=== PATIENT | female | born 1950 | race Caucasian/White ===

== ENCOUNTER 2018-10-29 15:40 | Outpatient (CLI) | payer MEDICARE ==
--- NOTE | 2018-10-29 17:42 | MRI ---
MRI LEFT FOOT WITHOUT IV CONTRAST: HISTORY: A 68-year-old female with a history of edema, R60.0. Pain and swelling over the dorsal aspect of the left foot, around the third toe. TECHNIQUE: Multiplanar, multisequence MRI examination of the left foot is performed. FINDINGS: There is some minimal soft tissue swelling around the distal second toe, with some minimal fluid with in the adjacent anterior metatarsal bursa. There is abnormal edema signal within the distal second m etatarsal, including the metatarsal head, with evidence for an insufficiency type subchondral fractur e of the metatarsal head, distally. There is minimal overlying subcutaneous soft tissue swelling. T here is some abnormal T2 hyperintensity and T1 hypointensity involving the medial sesamoid, at the fi rst metatarsophalangeal joint, with some associated arthrosis and degenerative changes. This abnorma l signal is nonspecific, but certainly can be seen in cases of insufficiency fracture, arthrosis, and sesamoiditis. The remainder of the foot appears unremarkable. IMPRESSION: 1. Evidence for a stress fracture involving the distal second metatarsal head, with some adjacent ed nessa and some minimal surrounding soft tissue swelling. 2. Abnormal signal involving the medial sesamoid, at the first metatarsophalangeal joint, with some associated arthrosis changes, a nonspecific finding, as above. 3. Minimal dorsal subcutaneous edema and fat stranding. 4. Generalized arthrosis and degenerative change. POS: MAREN
== END 2018-10-29 15:41 | disposition home or self-care (01) ==
LOC: MRI 15:40
PROVIDERS: ATTEND Podiatrist Foot & Ankle Surgery
DX: M77.42 Metatarsalgia, left foot (principal); G89.29 Other chronic pain; R60.0 Localized edema; M84.478A Pathological fracture, left toe(s), initial encounter for fracture; M79.89 Other specified soft tissue disorders; R93.7 Abnormal findings on diagnostic imaging of other parts of musculoskeletal system; M19.072 Primary osteoarthritis, left ankle and foot

== ENCOUNTER 2019-01-20 09:01 | Day surgery (SDC) | payer MEDICARE ==
[2019-01-19 13:01] VITALS: BMI 28.3
[2019-01-20] MEDS ORDERED: ceFAZolin Sodium 2 GM/100 ML BAG ONE (09:49)
[2019-01-20] MEDS ORDERED: Fentanyl 100 MCG/2 ML VIAL ONE ×4 (09:49→10:28)
[2019-01-20] MEDS ORDERED: Ropivacaine 0.2% HCl/PF 0 ML ONE (10:16)
[2019-01-20] MEDS ORDERED: Midazolam HCl 2 mg/2 ml Vial ONE ×2 (10:16→10:25)
[2019-01-20] MEDS ORDERED: Bupivacaine 0.25% HCL 30 ML VIAL ONE (10:21)
[2019-01-20] MEDS ORDERED: Lidocaine 2% Jelly 5 ML TUBE ONE (10:28)
[2019-01-20] MEDS ORDERED: Bupivacaine HCl 0.5%/Epinephrine 1:200,000/PF 30 ml Vial ONE (11:50)
--- NOTE | 2019-01-20 13:27 | OP ---
DATE OF PROCEDURE: 01/20/2019 PREOPERATIVE DIAGNOSIS: Right trimalleolar ankle fracture. POSTOPERATIVE DIAGNOSIS: Right trimalleolar ankle fracture. PROCEDURE PERFORMED: Open reduction and internal fixation of right ankle (medial and lateral malleoli). ANESTHESIA: General. TOURNIQUET TIME: 36 minutes at 250 mmHg. GIS PROFESSOR: Jose Gann PA-C. IMPLANT: Synthes nonlocking small fragment, 7 hole, 1/3 tubular plate with combination of cancellous and cortical screws as well as two partially-threaded cancellous screws for the medial malleolus. COMPLICATIONS: None. DRAINS: None. SPECIMEN: None. OUTCOME: Near-anatomic alignment with severe osteopenic bone. INDICATIONS: The patient is a 68-year-old lady status post trip on stairs, sustaining twisting injury to right ankle. X-rays obtained at the [facility] demonstrated a trimalleolar ankle fracture with displacement and lateral shift of the talus. After discussion with the patient including risks and benefits, we decided to proceed with open reduction and internal fixation. Informed consent has been obtained. I believe all questions answered. DESCRIPTION OF PROCEDURE: The patient was brought to the operating room and a time-out performed followed by induction of general anesthesia. Next, a sterile prep and drape were performed of the right lower extremity. The limb was then exsanguinated with Esmarch bandage, tourniquet inflated to 250 mmHg. Next, a lateral incision was made following the distal fibula. After skin was sharply incised, dissection was carried down bluntly exposing the lateral cortex of the distal fibula using minimal subperiosteal dissection. The fracture edges were clearly visualized and free of soft tissue and the fracture hematoma was lavaged from the wound. Next, the fracture was reduced and held in place with a bone tenaculum. This was followed by contouring of a 7 hole 1/3 tubular plate to fit the lateral cortex of the distal fibula. Once appropriately contoured, it was held in place with a total of three cancellous screws distally and three cortical screws proximally. Provisional C-arm images were then obtained that showed anatomic alignment of the lateral malleolus. Next, a 2-inch incision was made vertically centered over the medial malleolus after skin was sharply incised. Dissection was carried down bluntly, taking care to spare the saphenous vein. The fracture edges were again freed of soft tissue using a periosteal elevator and the fracture was reduced and held in place with a bone tenaculum. This was then followed by insertion of 245 mm long partially threaded cancellous screws from the tip of the medial malleolus obliquely across the fracture in the distal tibial metaphysis. Final AP and lateral C-arm image was then obtained that showed anatomic alignment of the fracture in acceptable position of hardware. The two wounds were then irrigated with bulb syringe and closed in layers with 0 Vicryl deep, followed by 2-0 Vicryl, and then gómez on both medial and lateral skin. Xeroform gauze, Webril, and fiberglass splint were then applied to the ankle. Tourniquet was let down. The patient was transferred to recovery room in stable condition. There were no complications. She tolerated the procedure well. Job ID: [id number]
[2019-01-20] MEDS ORDERED: Glycopyrrolate 0.2 MG/ML 5 ML SYRINGE ONE (13:33)
[2019-01-20] MEDS ORDERED: Lidocaine 1% PF 5 ML VIAL ONE (13:33)
[2019-01-20] MEDS ORDERED: Ondansetron PF 4 MG/2 ML Vial ONE (13:33)
[2019-01-20] MEDS ORDERED: PROPOFOL 200 MG/20 ML VIAL ONE (13:33)
--- NOTE | 2019-01-20 14:02 | RAD ---
RIGHT ANKLE 3 VIEWS: Date: 01/20/19 HISTORY: Status post open reduction and internal fixation right ankle. COMPARISON: 01/18/19. FINDINGS: Metal plate and screws stabilize the distal fibula and internal fixation screws stabilize the medial malleolus with improvement in the position of the bimalleolar fracture when compared to the prereduct ion study. There is a suggestion of some abnormal widening of the distal tibiofibular space. IMPRESSION: Medial and lateral malleolar internal fixation changes. Suggestion of some widening of the distal tib iofibular space. POS: [id number]
== END 2019-01-20 15:00 | disposition home or self-care (01) ==
LOC: SDC 09:01
PROVIDERS: ATTEND Orthopaedic Surgery
PROC: 0QSJ04Z Reposition Right Fibula with Internal Fixation Device, Open Approach (ICD-10-PCS; principal; 2019-01-20)
PROC: 0QSG04Z Reposition Right Tibia with Internal Fixation Device, Open Approach (ICD-10-PCS; 2019-01-20)
DX: S82.851A Displaced trimalleolar fracture of right lower leg, initial encounter for closed fracture (principal); M50.30 Other cervical disc degeneration, unspecified cervical region; Z86.010 Personal history of colon polyps; Z87.891 Personal history of nicotine dependence; Z90.89 Acquired absence of other organs; Z90.711 Acquired absence of uterus with remaining cervical stump; Z91.09 Other allergy status, other than to drugs and biological substances; Z98.890 Other specified postprocedural states; W01.0XXA Fall on same level from slipping, tripping and stumbling without subsequent striking against object, initial encounter
CPT/HCPCS: 76000; C1713; J0670; J0690; J2001; J2250; J2405; J2704; J2795; J3010; S0020

== ENCOUNTER 2021-12-26 15:50 | Outpatient (CLI) | payer MEDICARE ==
[2021-12-27 17:56] LABS: SARS-CoV-2 PCR by NAA Not Detected (NotDetected)
== END 2021-12-26 15:51 | disposition home or self-care (01) ==
LOC: LABBT 15:50
PROVIDERS: ATTEND Neurological Surgery
DX: Z01.812 Encounter for preprocedural laboratory examination (principal); M48.061 Spinal stenosis, lumbar region without neurogenic claudication; Z20.822 Contact with and (suspected) exposure to COVID-19
CPT/HCPCS: U0003; U0005

== ENCOUNTER 2021-12-29 05:33 | Inpatient (IN) | payer MEDICARE ==
[2021-12-29] MEDS ORDERED: Neomycin-Polymyxin 1 ML AMP ONE (06:12)
[2021-12-29] MEDS ORDERED: EPINEPHrine 1 MG/ML AMP ONE (06:12)
[2021-12-29] MEDS ORDERED: Bupivacaine PF 0.5% 30 ML VIAL ONE (06:12)
[2021-12-29] MEDS ORDERED: Thrombin 5000 UNITS/5 ML VIAL ONE (06:12)
[2021-12-29] MEDS ORDERED: Fentanyl 250 MCG/5 ML VIAL ONE ×2 (06:35→12:19)
[2021-12-29] MEDS ORDERED: Albumin 5% 500 ML ONE (06:35)
[2021-12-29] MEDS ORDERED: Dexmedetomidine 200 MCG/2 ML VIAL ONE (06:35)
[2021-12-29] MEDS ORDERED: Midazolam HCl 2 mg/2 ml Vial ONE (06:36)
[2021-12-29] MEDS ORDERED: ceFAZolin 2 GM/DEX 5% 100 ML BAG ONE (06:46)
[2021-12-29] MEDS ORDERED: Acetaminophen 325 MG TAB PO PRN (07:00)
[2021-12-29] MEDS ORDERED: diphenhydrAMINE 50 MG/ML VIAL IVP PRN (07:00)
[2021-12-29] MEDS ORDERED: Promethazine HCl 25 MG/ML VIAL IM PRN ×2 (07:00→12:17)
[2021-12-29] MEDS ORDERED: Mag-Al 1200 mg/1200 mg/30 ML UDCUP PO PRN (07:00)
[2021-12-29] MEDS ORDERED: Bisacodyl 10 MG SUPP PR PRN (07:00)
[2021-12-29] MEDS ORDERED: Milk Of Magnesia 30 ML UDCUP PO PRN (07:00)
[2021-12-29] MEDS ORDERED: Acetaminophen/Codeine 30-300mg Tablet PO PRN (07:00)
[2021-12-29] MEDS ORDERED: Ondansetron PF 4 MG/2 ML Vial IVP PRN (07:00)
[2021-12-29] MEDS ORDERED: Rocuronium Bromide 10 MG/ML (10ML VIAL) ONE (07:05)
[2021-12-29] MEDS ORDERED: PROPOFOL 200 MG/20 ML VIAL ONE (07:05)
[2021-12-29] MEDS ORDERED: ePHEDrine 50 MG/ML VIAL ONE (07:05)
[2021-12-29] MEDS ORDERED: Ondansetron PF 4 MG/2 ML Vial ONE (07:05)
[2021-12-29] MEDS ORDERED: Calcium Chloride 1 GM/10 ML Abboject SYRINGE ONE (07:05)
[2021-12-29] MEDS ORDERED: Vecuronium 10 MG VIAL ONE (07:05)
[2021-12-29] MEDS ORDERED: Lidocaine 1% PF 5 ML VIAL ONE (07:05)
[2021-12-29] MEDS ORDERED: Dexamethasone 20 MG/5 ML VIAL ONE (07:05)
[2021-12-29] MEDS ORDERED: PHENYLEPHRINE-NS 100 MCG/ML 10 ML SYRINGE ONE (07:05)
[2021-12-29] MEDS ORDERED: Morphine 4 MG/ML VIAL SLOW IVP PRN (07:15)
[2021-12-29] MEDS: Calcium Carbonate 600 MG TAB PO SCH (09:00)
[2021-12-29] MEDS: Gabapentin 300 MG CAP PO SCH ×2 (09:00→20:19)
[2021-12-29] MEDS: Amlodipine 10 MG TAB PO SCH (09:00)
[2021-12-29] MEDS ORDERED: Phenylephrine 10 MG/ML VIAL ONE (09:04)
[2021-12-29] MEDS ORDERED: SUGAMMADEX SODIUM 200 MG/2 ML VIAL ONE (11:52)
[2021-12-29] MEDS ORDERED: Ondansetron HCl/PF 4 MG/2 ML Vial IVP PRN (12:17)
[2021-12-29] MEDS ORDERED: HYDROmorphone 2 MG/ML VIAL SLOW IVP PRN (12:17)
[2021-12-29] MEDS ORDERED: Promethazine HCl 25 MG/ML VIAL IVPB PRN (12:17)
[2021-12-29] MEDS ORDERED: PACU-Morphine 4MG/ML VIAL SLOW IVP PRN ×2 (12:17→12:23)
[2021-12-29] MEDS ORDERED: Morphine 4 MG/ML VIAL ONE (13:46)
[2021-12-29] MEDS ORDERED: CEFAZOLIN 2 GM, Admixture Fee 1 EACH in Sodium Chloride 0.9% 100 ML IVPB SCH (15:00)
[2021-12-29] MEDS: Sodium Chloride 0.9% 1,000 ML IV SCH ×2 (17:11→23:09)
[2021-12-29] MEDS: HYDROcodone/Acetaminophen 10/325 mg Tablet PO PRN ×2 (18:19→23:31)
[2021-12-29 18:25] VITALS: BMI 27.0
[2021-12-29] MEDS: Rosuvastatin 5 MG TAB PO SCH (20:19)
[2021-12-29] MEDS: CEFAZOLIN 2 GM, Admixture Fee 1 EACH in Sodium Chloride 0.9% 100 ML IVPB SCH (20:19)
[2021-12-30] MEDS ORDERED: ceFAZolin Sodium/D5W 2 GM in Premix Bag 1 BAG IVPB SCH (04:00)
[2021-12-30] MEDS ORDERED: CEFAZOLIN 2 GM, Admixture Fee 1 EACH in Sodium Chloride 0.9% 100 ML IVPB SCH (04:00)
[2021-12-30 05:16] LABS: #Basophils 0.1 thou/uL (0.0-0.2); #Lymphocytes 1.1 thou/uL (1.20-3.40); #Monocytes 1.2 thou/uL (0.11-0.59); #Neutrophils 8.5 thou/uL (1.40-6.50); %Eosinophils 0.1 % (0.0-10.0); %Lymphocytes 10.2 % (21.0-51.0); %Monocytes 10.7 % (0.0-10.0); %Neutrophils 78.1 % (42.0-75.0); Hemoglobin 8.8 g/dL (12.0-16.0); Mean Corpuscular HGB CONC 33.6 g/dL (32.0-36.0); Mean Corpuscular Hemoglobin 34.2 pg (27.0-31.0); Mean Platelet Volume 7.3 fL (7.4-10.4); Platelet Count 306 thou/uL (130-400); RBC Distribution Width 11.4 % (11.5-14.5); Red Blood Cell (RBC) Count 2.58 mill/uL (4.20-5.40); White Blood Cell (WBC) Count 10.9 thou/uL (4.8-10.8)
[2021-12-30 05:23] LABS: Anion Gap 11 mmol/L (10-20); BUN (Urea Nitrogen) 10 mg/dL (9.8-20.1); Calc. Creatinine Clearance 86 mL/min (70-130); Calcium 8.6 mg/dL (7.8-10.44); Carbon Dioxide 24 mmol/L (23-31); Chloride 108 mmol/L (98-107); Glucose 133 mg/dL (83-110); Potassium 4.5 mmol/L (3.5-5.1); Sodium 138 mmol/L (136-145)
[2021-12-30] MEDS: CEFAZOLIN 2 GM, Admixture Fee 1 EACH in Sodium Chloride 0.9% 100 ML IVPB SCH (05:58)
[2021-12-30] MEDS: HYDROcodone/Acetaminophen 10/325 mg Tablet PO PRN ×3 (06:07→18:55)
[2021-12-30] MEDS: Calcium Carbonate 600 MG TAB PO SCH (09:27)
[2021-12-30] MEDS: Amlodipine 10 MG TAB PO SCH (09:29)
[2021-12-30] MEDS: Gabapentin 300 MG CAP PO SCH ×2 (09:29→20:24)
[2021-12-30] MEDS: Cyclobenzaprine 10 MG TAB PO PRN (12:45)
[2021-12-30] MEDS: Sodium Chloride 0.9% 1,000 ML IV SCH ×2 (18:05→21:38)
[2021-12-30] MEDS: Rosuvastatin 5 MG TAB PO SCH (20:24)
[2021-12-31] MEDS: HYDROcodone/Acetaminophen 10/325 mg Tablet PO PRN ×3 (06:57→18:50)
[2021-12-31] MEDS: Calcium Carbonate 600 MG TAB PO SCH (09:39)
[2021-12-31] MEDS: Amlodipine 10 MG TAB PO SCH (09:39)
[2021-12-31] MEDS: Gabapentin 300 MG CAP PO SCH ×2 (09:41→20:38)
[2021-12-31] MEDS: Cyclobenzaprine 10 MG TAB PO PRN (12:20)
[2021-12-31] MEDS: Sodium Chloride 0.9% 1,000 ML IV SCH ×2 (17:20→20:54)
[2021-12-31] MEDS ORDERED: Lorazepam 2 MG/ML VIAL IM PRN (19:37)
[2021-12-31] MEDS ORDERED: Ondansetron ODT 4 MG TAB PO PRN (19:37)
[2021-12-31] MEDS ORDERED: Lorazepam 1 MG TAB PO PRN (19:37)
[2021-12-31] MEDS ORDERED: Electrolyte Replacement Protocol 1 EACH FS SCH (19:45)
[2021-12-31] MEDS ORDERED: Folic Acid 1 MG TAB PO SCH (20:00)
[2021-12-31] MEDS: HYDROcodone/Acetaminophen 7.5/325 mg Tablet PO PRN (20:38)
[2021-12-31] MEDS: Rosuvastatin 5 MG TAB PO SCH (20:38)
[2021-12-31] MEDS: Lorazepam 1 MG TAB PO SCH (20:42)
[2021-12-31] MEDS: Thiamine HCl 200 MG/2 ML VIAL SLOW IVP SCH (20:55)
[2021-12-31 21:21] LABS: #Eosinphils 0.1 thou/uL (0.0-0.7); #Lymphocytes 1.6 thou/uL (1.20-3.40); #Monocytes 1.2 thou/uL (0.11-0.59); #Neutrophils 8.5 thou/uL (1.40-6.50); %Basophils 0.3 % (0.0-1.0); %Eosinophils 0.5 % (0.0-10.0); %Lymphocytes 14.2 % (21.0-51.0); %Monocytes 10.2 % (0.0-10.0); %Neutrophils 74.9 % (42.0-75.0); Hemoglobin 8.3 g/dL (12.0-16.0); Mean Corpuscular HGB CONC 33.2 g/dL (32.0-36.0); Mean Corpuscular Hemoglobin 34.2 pg (27.0-31.0); Mean Platelet Volume 7.2 fL (7.4-10.4); Platelet Count 254 thou/uL (130-400); RBC Distribution Width 11.3 % (11.5-14.5); Red Blood Cell (RBC) Count 2.41 mill/uL (4.20-5.40); White Blood Cell (WBC) Count 11.3 thou/uL (4.8-10.8)
[2021-12-31 21:36] LABS: Lactic Acid 0.7 mmol/L (0.5-2.2)
[2021-12-31] MEDS ORDERED: Pantoprazole 40 MG GRANULES PACKET PO SCH (21:37)
[2021-12-31 21:40] LABS: Phosphorus 2.1 mg/dL (2.3-4.7)
[2021-12-31 21:41] LABS: ALT (SGPT) 34 U/L (8-55); AST (SGOT) 42 U/L (5-34); Albumin 3.4 g/dL (3.4-4.8); Alkaline Phosphatase 61 U/L (40-110); Anion Gap 9 mmol/L (10-20); BUN (Urea Nitrogen) 6 mg/dL (9.8-20.1); Bilirubin, Total 0.6 mg/dL (0.2-1.2); Calc. Creatinine Clearance 91 mL/min (70-130); Calcium 8.5 mg/dL (7.8-10.44); Carbon Dioxide 28 mmol/L (23-31); Chloride 100 mmol/L (98-107); Globulin 2.4 g/dL (2.4-3.5); Glucose 134 mg/dL (83-110); Magnesium 1.7 mg/dL (1.6-2.6); Potassium 3.3 mmol/L (3.5-5.1); Protein, Total 5.8 g/dL (5.8-8.1); Sodium 134 mmol/L (136-145)
[2021-12-31] MEDS ORDERED: Lansoprazole 3 MG/ML ORAL SUSPENSION PER TUBE SCH (22:00)
[2021-12-31] MEDS ORDERED: Lansoprazole 3 MG/ML ORAL SUSPENSION PO SCH (22:00)
[2021-12-31] MEDS ORDERED: Potassium Chloride 20 MEQ TAB PO SCH (22:33)
[2021-12-31] MEDS ORDERED: PHOS-NAK 1 PKT PACK PO SCH (22:33)
[2021-12-31] MEDS ORDERED: Magnesium 2 GM/50 ML(in water) 2 GM in Premix Bag 1 BAG IVPB SCH (23:00)
[2021-12-31] MEDS: Cefepime 2 GM in Sodium Chloride 0.9% 100 ML IVPB SCH (23:12)
[2022-01-01] MEDS: Lorazepam 1 MG TAB PO SCH ×3 (02:53→14:15)
[2022-01-01] MEDS: HYDROcodone/Acetaminophen 7.5/325 mg Tablet PO PRN ×2 (06:44→21:46)
[2022-01-01 07:47] LABS: #Eosinphils 0.1 thou/uL (0.0-0.7); #Lymphocytes 1.5 thou/uL (1.20-3.40); #Monocytes 1.1 thou/uL (0.11-0.59); #Neutrophils 7.4 thou/uL (1.40-6.50); %Basophils 0.3 % (0.0-1.0); %Eosinophils 0.8 % (0.0-10.0); %Lymphocytes 15.3 % (21.0-51.0); %Monocytes 10.8 % (0.0-10.0); %Neutrophils 72.8 % (42.0-75.0); Mean Corpuscular HGB CONC 33.2 g/dL (32.0-36.0); Mean Corpuscular Hemoglobin 34.2 pg (27.0-31.0); Mean Platelet Volume 7.1 fL (7.4-10.4); Platelet Count 235 thou/uL (130-400); RBC Distribution Width 11.4 % (11.5-14.5); Red Blood Cell (RBC) Count 2.34 mill/uL (4.20-5.40); White Blood Cell (WBC) Count 10.1 thou/uL (4.8-10.8)
[2022-01-01 08:05] LABS: Anion Gap 12 mmol/L (10-20); BUN (Urea Nitrogen) 7 mg/dL (9.8-20.1); Calc. Creatinine Clearance 104 mL/min (70-130); Calcium 8.2 mg/dL (7.8-10.44); Carbon Dioxide 25 mmol/L (23-31); Chloride 103 mmol/L (98-107); Glucose 116 mg/dL (83-110); Potassium 3.8 mmol/L (3.5-5.1); Sodium 136 mmol/L (136-145)
[2022-01-01] MEDS: Calcium Carbonate 600 MG TAB PO SCH (08:42)
[2022-01-01] MEDS: Folic Acid 1 MG TAB PO SCH (08:43)
[2022-01-01] MEDS: Cefepime 2 GM in Sodium Chloride 0.9% 100 ML IVPB SCH (08:43)
[2022-01-01] MEDS: Gabapentin 300 MG CAP PO SCH ×2 (08:43→21:46)
[2022-01-01] MEDS: Multivit, Therapeutic 1 TAB PO SCH (08:43)
[2022-01-01] MEDS: Amlodipine 10 MG TAB PO SCH (08:46)
[2022-01-01] MEDS: Cyclobenzaprine 10 MG TAB PO PRN (09:08)
[2022-01-01 10:53] LABS: Syphilis Antibody Nonreactive (Nonreactive); Syphilis Antibody Index 0.05 S/CO (<1.00 Non-Reactive)
[2022-01-01] MEDS: HYDROcodone/Acetaminophen 10/325 mg Tablet PO PRN ×2 (10:54→15:14)
[2022-01-01] MEDS: Lansoprazole 3 MG/ML ORAL SUSPENSION PO SCH (11:23)
[2022-01-01 15:34] LABS: Bilirubin Negative (Negative); Blood, Urine 1+ (Negative); Clarity Clear (Clear); Glucose, Urine (Dipstick) Normal (Negative); Ketone, Urine Negative (Negative); Leukocyte Negative Leu/uL (Negative); Nitrite Negative (Negative); Protein, Urine (Dipstick) 50 mg/dL (Neg-Trace); Specific Gravity, Urine 1.025 (1.002-1.036); Urobilinogen Normal mg/dL (Less than 2); WBC/HPF 0-3 HPF (0-3)
[2022-01-01 15:35] LABS: Bacteria/HPF Rare-Few HPF (None Seen)
[2022-01-01] MEDS: Sodium Chloride 0.9% 1,000 ML IV SCH (18:52)
[2022-01-01] MEDS ORDERED: Lorazepam 1 MG TAB PO PRN (19:37)
[2022-01-01] MEDS: Thiamine HCl 200 MG/2 ML VIAL SLOW IVP SCH (21:41)
[2022-01-01] MEDS: Rosuvastatin 5 MG TAB PO SCH (21:46)
[2022-01-01] MEDS: Senokot 8.6 MG TAB PO SCH (21:46)
[2022-01-02] MEDS ORDERED: Famotidine/PF 20 mg/2ml Vial SLOW IVP SCH (04:07)
[2022-01-02] MEDS ORDERED: hydrOXYzine 10 MG TAB PO SCH (04:07)
[2022-01-02] MEDS ORDERED: methylPREDNISolone Sod Succ/PF 125 MG/2 ML VIAL IVP SCH (04:07)
[2022-01-02] MEDS: HYDROcodone/Acetaminophen 7.5/325 mg Tablet PO PRN ×4 (05:18→21:28)
[2022-01-02 07:20] LABS: #Eosinphils 0.1 thou/uL (0.0-0.7); #Lymphocytes 0.5 thou/uL (1.20-3.40); #Monocytes 0.4 thou/uL (0.11-0.59); #Neutrophils 9.5 thou/uL (1.40-6.50); %Basophils 0.3 % (0.0-1.0); %Eosinophils 1.2 % (0.0-10.0); %Lymphocytes 4.5 % (21.0-51.0); %Monocytes 3.4 % (0.0-10.0); %Neutrophils 90.7 % (42.0-75.0); Mean Corpuscular HGB CONC 32.4 g/dL (32.0-36.0); Mean Corpuscular Hemoglobin 33.4 pg (27.0-31.0); Mean Platelet Volume 7.8 fL (7.4-10.4); Platelet Count 251 thou/uL (130-400); RBC Distribution Width 11.4 % (11.5-14.5); Red Blood Cell (RBC) Count 2.38 mill/uL (4.20-5.40); White Blood Cell (WBC) Count 10.4 thou/uL (4.8-10.8)
[2022-01-02] MEDS: Folic Acid 1 MG TAB PO SCH (10:16)
[2022-01-02] MEDS: Calcium Carbonate 600 MG TAB PO SCH (10:16)
[2022-01-02] MEDS: Gabapentin 300 MG CAP PO SCH ×2 (10:16→21:27)
[2022-01-02] MEDS: Multivit, Therapeutic 1 TAB PO SCH (10:19)
[2022-01-02] MEDS: Lansoprazole 3 MG/ML ORAL SUSPENSION PO SCH (10:24)
[2022-01-02] MEDS: Sodium Chloride 0.9% 1,000 ML IV SCH (14:12)
[2022-01-02] MEDS ORDERED: Lorazepam 1 MG TAB PO PRN (19:37)
[2022-01-02] MEDS ORDERED: Lorazepam 0.5 MG TAB PO SCH (20:00)
[2022-01-02] MEDS: Rosuvastatin 5 MG TAB PO SCH (21:26)
[2022-01-02] MEDS: Thiamine HCl 200 MG/2 ML VIAL SLOW IVP SCH (21:26)
[2022-01-02] MEDS: Senokot 8.6 MG TAB PO SCH (21:27)
[2022-01-03] MEDS: Calcium Carbonate 600 MG TAB PO SCH (08:36)
[2022-01-03] MEDS: Gabapentin 300 MG CAP PO SCH ×2 (08:37→20:13)
[2022-01-03] MEDS: Folic Acid 1 MG TAB PO SCH (08:37)
[2022-01-03] MEDS: Multivit, Therapeutic 1 TAB PO SCH (08:39)
[2022-01-03] MEDS: HYDROcodone/Acetaminophen 10/325 mg Tablet PO PRN ×3 (08:39→20:14)
[2022-01-03] MEDS: Lansoprazole 3 MG/ML ORAL SUSPENSION PO SCH (08:40)
[2022-01-03] MEDS ORDERED: Fleet Enema 133 ML BOT FS SCH (12:30)
[2022-01-03] MEDS ORDERED: Lorazepam 0.5 MG TAB PO PRN (19:37)
[2022-01-03] MEDS: Rosuvastatin 5 MG TAB PO SCH (20:13)
[2022-01-03] MEDS: Senokot 8.6 MG TAB PO SCH (20:14)
[2022-01-03] MEDS: Thiamine 100 MG TAB PO SCH (20:14)
[2022-01-03] MEDS: Cyclobenzaprine 10 MG TAB PO PRN (20:14)
[2022-01-04] MEDS: HYDROcodone/Acetaminophen 10/325 mg Tablet PO PRN ×2 (06:18→17:45)
[2022-01-04] MEDS: Multivit, Therapeutic 1 TAB PO SCH (08:39)
[2022-01-04] MEDS: Folic Acid 1 MG TAB PO SCH (08:39)
[2022-01-04] MEDS: Gabapentin 300 MG CAP PO SCH ×2 (08:39→20:18)
[2022-01-04] MEDS: Calcium Carbonate 600 MG TAB PO SCH (08:40)
[2022-01-04] MEDS: Lansoprazole 3 MG/ML ORAL SUSPENSION PO SCH (08:41)
[2022-01-04] MEDS: Thiamine 100 MG TAB PO SCH (20:17)
[2022-01-04] MEDS: Senokot 8.6 MG TAB PO SCH (20:18)
[2022-01-04] MEDS: HYDROcodone/Acetaminophen 7.5/325 mg Tablet PO PRN (20:18)
[2022-01-04] MEDS: Rosuvastatin 5 MG TAB PO SCH (20:18)
[2022-01-05] MEDS: HYDROcodone/Acetaminophen 7.5/325 mg Tablet PO PRN ×3 (05:46→19:29)
[2022-01-05] MEDS: Calcium Carbonate 600 MG TAB PO SCH (08:39)
[2022-01-05] MEDS: Gabapentin 300 MG CAP PO SCH ×2 (08:39→20:34)
[2022-01-05] MEDS: Lansoprazole 3 MG/ML ORAL SUSPENSION PO SCH (08:40)
[2022-01-05] MEDS: Multivit, Therapeutic 1 TAB PO SCH (08:40)
[2022-01-05] MEDS: Folic Acid 1 MG TAB PO SCH (08:40)
[2022-01-05] MEDS: Rosuvastatin 5 MG TAB PO SCH (20:34)
[2022-01-05] MEDS: Senokot 8.6 MG TAB PO SCH (20:34)
[2022-01-05] MEDS: Thiamine 100 MG TAB PO SCH (20:34)
[2022-01-05] MEDS: diphenhydrAMINE 30 GM TUBE TOP PRN (20:40)
[2022-01-06] MEDS: HYDROcodone/Acetaminophen 7.5/325 mg Tablet PO PRN ×2 (05:34→13:33)
[2022-01-06] MEDS: diphenhydrAMINE 30 GM TUBE TOP PRN (05:38)
[2022-01-06] MEDS: Calcium Carbonate 600 MG TAB PO SCH (08:31)
[2022-01-06] MEDS: Multivit, Therapeutic 1 TAB PO SCH (08:31)
[2022-01-06] MEDS: Folic Acid 1 MG TAB PO SCH (08:31)
[2022-01-06] MEDS: Gabapentin 300 MG CAP PO SCH (08:31)
[2022-01-06] MEDS: Lansoprazole 3 MG/ML ORAL SUSPENSION PO SCH (08:34)
[2022-01-06 15:53] VITALS: BP 149/86; TEMP 98.5
== END 2022-01-06 18:20 | disposition swing bed (61) | DRG 453 ==
LOC: SDC 05:33 → SURG A 06:57
PROVIDERS: ADMIT Neurological Surgery; ATTEND Internal Medicine
PROC: 0SG00AJ Fusion of Lumbar Vertebral Joint with Interbody Fusion Device, Posterior Approach, Anterior Column, Open Approach (ICD-10-PCS; principal; 2021-12-29)
PROC: 0SG0071 Fusion of Lumbar Vertebral Joint with Autologous Tissue Substitute, Posterior Approach, Posterior Column, Open Approach (ICD-10-PCS; 2021-12-29)
PROC: 01NB0ZZ Release Lumbar Nerve, Open Approach (ICD-10-PCS; 2021-12-29)
PROC: 0SB20ZZ Excision of Lumbar Vertebral Disc, Open Approach (ICD-10-PCS; 2021-12-29)
DX: M48.062 Spinal stenosis, lumbar region with neurogenic claudication (principal); J18.9 Pneumonia, unspecified organism; J96.01 Acute respiratory failure with hypoxia; J90 Pleural effusion, not elsewhere classified; Z20.822 Contact with and (suspected) exposure to COVID-19; M43.16 Spondylolisthesis, lumbar region; M54.16 Radiculopathy, lumbar region; I10 Essential (primary) hypertension; E78.5 Hyperlipidemia, unspecified; D75.89 Other specified diseases of blood and blood-forming organs; M19.90 Unspecified osteoarthritis, unspecified site; Z90.710 Acquired absence of both cervix and uterus; Z90.89 Acquired absence of other organs; Z87.891 Personal history of nicotine dependence; Z72.89 Other problems related to lifestyle; Z01.812 Encounter for preprocedural laboratory examination
CPT/HCPCS: 36415; 36416; 71045; 71046; 76000; 80048; 80053; 81001; 82607; 82746; 83605; 83735; 83880; 84100; 84484; 85025; 86780; 86850; 86900; 86901; 87040; 87086; 93970; 94640; C1713; C1768; C1776; J0171; J0690; J0692; J1100; J1956; J2250; J2270; J2370; J2405; J2704; J2930; J3010; J3370; J3411; J3475; J3490; J7050; J7620; P9045; S0020; S0028; U0003; U0005